=== PATIENT | female | born 1995 | race American Indian/Alaskan Native ===

== ENCOUNTER 2016-08-02 15:28 | Emergency (ER) | payer MEDICAID, OTHER | END 2016-08-02 15:29 | disposition left against medical advice (07) | LOC: ED 15:28 | DX: Z02.89 Encounter for other administrative examinations (principal); R25.2 Cramp and spasm ==

== ENCOUNTER 2016-08-02 15:33 | Emergency (ER) | payer MEDICAID, OTHER ==
[2016-08-02] MEDS ORDERED: Sodium Chloride 0.9% 1,000 ML IV STA (15:58)
--- NOTE | 2016-08-02 16:02 | ED PDOC ---
Arrival/HPI - General Chief Complaint: Female Genitourinary Time Seen by Provider: 08/02/16 15:51 Historian: Patient - History of Present Illness Narrative History of Present Illness (Text): 08/02/16 15:59 Patient reports onset of her menses yesterday, complains of crampy lower abdominal pain, associated with nausea, vomiting 3x today, diarrhea yesterday but none today, as well as heavy vaginal bleeding, reports using 4-5 pads/day. Otherwise: (-) urinary symptoms, (-) relief from midol, (-) fever, (-) other complaints. PMD none TELEPHONIC NURSE none Past Medical History - Provider Review Nursing Documentation Reviewed: Yes - Infectious Disease Hx of Infectious Diseases: None - Cardiac Hx Cardiac Disorders: No - Pulmonary Hx Asthma: Yes - Neurological Hx Migraine: Yes - HEENT Hx HEENT Disorder: No - Renal Hx Renal Disorder: No - Endocrine/Metabolic Hx Endocrine Disorders: No - Hematological/Oncological Hx Blood Disorders: No - Integumentary Hx Dermatological Disorder: No - Musculoskeletal/Rheumatological Hx Musculoskeletal Disorders: No - Gastrointestinal Hx Gastrointestinal Disorders: No - Genitourinary/Gynecological Hx Genitourinary Disorders: No - Psychiatric Hx Psychophysiologic Disorder: No Hx Substance Use: No - Anesthesia Hx Anesthesia: No Hx Anesthesia Reactions: No Hx Malignant Hyperthermia: No Family/Social History - Physician Review Nursing Documentation Reviewed: Yes Family/Social History: No Known Family HX Smoking Status: Former Smoker Hx Alcohol Use: Yes Frequency of alcohol use: Socially Hx Substance Use: No Allergies/Home Meds Allergies/Adverse Reactions: Allergies No Known Allergies Allergy (Verified 08/02/16 15:43) Review of Systems - Review of Systems Constitutional: Normal. absent: Fatigue, Weight Change Respiratory: Normal. absent: SOB, Cough Cardiovascular: Normal. absent: Chest Pain, Palpitations Gastrointestinal: Normal, Diarrhea, Nausea, Vomiting. absent: Stool Changes, Constipation Genitourinary Female: Normal. absent: Dysuria, Frequency, Hematuria Skin: Normal. absent: Rash, Skin Lesions Physical Exam - Physical Exam Narrative Physical Exam (Text): 08/02/16 16:01 GENERAL APPEARANCE: Patient is awake, alert, oriented x 3, in no acute distress. Patient is sitting comfortably in the chair talking on her cell phone. SKIN: Warm, dry; (-) cyanosis. EYES: (-) conjunctival pallor, (-) scleral icterus. ENMT: Mucous membranes moist. NECK: (-) tenderness, (-) stiffness, (-) lymphadenopathy. CHEST AND RESPIRATORY: (-) rales, (-) rhonchi, (-) wheezes; breath sounds equal bilaterally. HEART AND CARDIOVASCULAR: (-) irregularity; (-) murmur, (-) gallop. ABDOMEN AND GI: (-) distention. Bowel sounds active; (-) tenderness, (-) guarding, (-) rebound, (-) palpable masses, (-) CVA tenderness. EXTREMITIES: (-) deformity, (-) edema, (+) distal pulses. NEURO AND PSYCH: Mental status as above; (-) focal findings. Vital Signs Temp Pulse Resp BP Pulse Ox 08/02/16 16:20 98.0 F 63 18 120/69 98 08/02/16 15:39 98.1 F 63 18 120/69 99 Medical Decision Making ED Course and Treatment: 08/02/16 16:00 21 yo F presents with dysmenorrhea with N/V/D. Plan: -- Labs -- IV fluids -- Zofran / Toradol -- Reassess and disposition 08/02/16 17:18 [facility] [place] (-). Labs wnl. Lab results discussed with the patient in great detail. On re-evaluation, patient is resting in bed comfortably in no acute distress, talking on her cellphone. On exam, abdomen remains soft with no tenderness, no rebound, no guarding. Based on history, exam and diagnostic results plan will be for outpatient follow -up. Prescription provided. Patient states she fully agrees with and understands discharge instructions. States that she agrees with the plan and disposition. Verbalized and repeated discharge instructions and plan. I have given the patient opportunity to ask any additional questions. Follow up with referral physician in 1-2 days without fail. Advised to take medication as prescribed. Return to the emergency room at any time for any new or worsening symptoms. - Lab Interpretations Lab Results: 08/02/16 16:15 08/02/16 16:15 Lab Results 08/02/16 16:15: WBC 7.5, RBC 3.92, Hgb 12.7, Hct 36.1, MCV 92.1, MCH 32.4, MCHC 35.2, RDW 12.3, Plt Count 234, MPV 9.3, Gran % 58.4, Lymph % (Auto) 34.8, [place] % (Auto) 5.2, Eos % (Auto) 1.5, Baso % (Auto) 0.1, Gran # 4.35, Lymph # 2.6, [place] # 0.4, Eos # 0.1, Baso # 0.01, Sodium 139, Potassium 4.0, Chloride 104, Carbon Dioxide 25, Anion Gap 14, BUN 12, Creatinine 0.7, Est GFR ( Amer) > 60, Est GFR (Non-Af Amer) > 60, Random Glucose 92, Calcium 9.1, Total Bilirubin 0.5, AST 18, ALT 8, Alkaline Phosphatase 65, Total Protein 7.2, Albumin 4.0, Globulin 3.3, Albumin/Globulin Ratio 1.2 - Medication Orders Current Medication Orders: Discontinued Medications Sodium Chloride (Sodium Chloride 0.9%) 1,000 mls @ 1,000 mls/hr IV .Q1H STA Stop: 08/02/16 16:57 Last Admin: 08/02/16 16:26 Dose: 1,000 MLS/HR eMAR Start Stop Document 08/02/16 16:26 SE (Rec: 08/02/16 16:26 [id number] Intravenous Solution Start Date 08/02/16 Start Time 16:26 Ketorolac Tromethamine (Toradol) 30 mg IVP STAT STA Stop: 08/02/16 15:59 Last Admin: 08/02/16 16:26 Dose: 30 MG IVP Administration Document 08/02/16 16:26 SE (Rec: 08/02/16 16:26 [id number] Charges for Administration # of IVP Administrations 1 Ondansetron HCl (Zofran Inj) 4 mg IVP STAT STA Stop: 08/02/16 15:58 Last Admin: 08/02/16 16:26 Dose: 4 MG IVP Administration Document 08/02/16 16:26 SE (Rec: 08/02/16 16:26 [id number] Charges for Administration # of IVP Administrations 1 - 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 Disposition/Present on Arrival - Present on Arrival Any Indicators Present on Arrival: No History of DVT/PE: No History of Uncontrolled Diabetes: No Urinary Catheter: No History of Decub. Ulcer: No History Surgical Site Infection Following: None - Disposition Have Diagnosis and Disposition been Completed?: Yes Diagnosis: Dysmenorrhea Disposition: HOME/ ROUTINE Disposition Time: 17:21 Patient Plan: Discharge Condition: GOOD Discharge Instructions (ExitCare): Dysmenorrhea (ED) Print Language: BELARUSIAN Additional Instructions: Thank you for letting us take care of you today. You were treated for dysmenorrhea. The emergency medical care you received today was directed at your acute symptoms. If you were prescribed any medication, please fill it and take as directed. It may take several days for your symptoms to resolve. Return to the Emergency Department if your symptoms worsen, do not improve, or if you have any other problems. Please contact referral physician provided in 2 days for re-evaluation and follow up. Bring any paperwork you were given at discharge with you along with any medications you are taking to your follow up visit. Our treatment cannot replace ongoing medical care by a primary care provider (PCP) outside of the emergency department. Thank you for allowing the [facility] team to be part of your care today. Prescriptions: Naproxen 500 mg PO BID #30 tab Ondansetron ODT [Zofran ODT] 4 mg PO DAILY PRN #20 odt PRN Reason: Nausea/Vomiting Referrals: PCPROWENA [Primary Care Provider] - Follow up with primary Pako Gimenez DO [Staff Provider] - Follow up with primary Forms: WORK NOTE
[2016-08-02 16:27] LABS: ADD MANUAL DIFF? NO
[2016-08-02 16:29] VITALS: BP 120/69; PULSE 63; RESP 18; TEMP 98; O2SAT 98
[2016-08-02 16:35] LABS: BASO # 0.01 K/mm3 (0.0-2.0); BASO % 0.1 % (0.0-3.0); EOS # 0.1 (0.0-0.7); EOS % 1.5 % (1.5-5.0); GRAN # 4.35 (1.4-6.5); GRAN % 58.4 % (50.0-68.0); HEMATOCRIT 36.1 % (36.0-48.0); LYMPH # 2.6 (1.2-3.4); LYMPH % 34.8 % (22.0-35.0); MEAN CELL VOLUME 92.1 fL (80.0-105.0); MEAN CORPUSCULAR HEMOGLOBIN 32.4 pg (25.0-35.0); MEAN CORPUSCULAR HGB CONC 35.2 g/dl (31.0-37.0); MEAN PLATELET VOLUME 9.3 fl (7.0-11.0); MONO # 0.4 (0.1-0.6); MONO % 5.2 % (1.0-6.0); PLATELET COUNT 234 10^3/uL (120.0-450.0); RED CELL DISTRIBUTION WIDTH 12.3 % (11.5-14.5); WHITE BLOOD COUNT 7.5 10^3/ul (4.5-11.0)
[2016-08-02 16:39] LABS: ALB/GLOB RATIO 1.2 (1.1-1.8); ALKALINE PHOSPHATASE 65 U/L (38-133); ALT/SGPT 8 U/L (7-56); AST/SGOT 18 U/L (15-39); BILIRUBIN,TOTAL 0.5 mg/dL (0.2-1.3); BLOOD UREA NITROGEN 12 mg/dL (7-21); CALCIUM 9.1 mg/dL (8.4-10.5); CARBON DIOXIDE 25 mmol/L (21-33); CHLORIDE 104 mmol/L (98-107); GFR AFRICAN-AMERICAN > 60; GLUCOSE,RANDOM 92 mg/dL (70-110); SODIUM 139 mmol/L (132-148); TOTAL PROTEIN 7.2 g/dL (5.8-8.3)
== END 2016-08-02 17:34 | disposition home or self-care (01) ==
LOC: ED 15:33
DX: N94.6 Dysmenorrhea, unspecified (principal)
CPT/HCPCS: 80053; 85025; 96374; 96375; 99284; J1885; J2405; J7040

== ENCOUNTER 2016-09-19 00:41 | Emergency (ER) | payer MEDICAID ==
[2016-09-19 00:57] VITALS: BMI 20.4
[2016-09-19 01:01] VITALS: BP 123/79; PULSE 79; RESP 18; TEMP 98.9; O2SAT 96
--- NOTE | 2016-09-19 01:24 | ED PDOC ---
Arrival/HPI - General Chief Complaint: Upper Extremity Problem/Injury Time Seen by Provider: 09/19/16 01:13 Historian: Patient - History of Present Illness Narrative History of Present Illness (Text): 09/19/16 01:19 Marielle Hooper is a 21 year old female, with no significant past medical history, who presents to the emergency department complaining of bilateral shoulder discomfort. 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 Patient denies any back pain, neck pain, headache , dizziness, weakness/numbness/tingling in the extremities, chest pain, shortness of breath, or any other complaints. Time/Duration: Other (tonight) Symptom Onset: Gradual Symptom Course: Unchanged Quality: Other (Muscle spasms) Context: Work Past Medical History - Provider Review Nursing Documentation Reviewed: Yes - Infectious Disease Hx of Infectious Diseases: None - Cardiac Hx Cardiac Disorders: No - Pulmonary Hx Asthma: Yes - Neurological Hx Migraine: Yes - HEENT Hx HEENT Disorder: No - Renal Hx Renal Disorder: No - Endocrine/Metabolic Hx Endocrine Disorders: No - Hematological/Oncological Hx Blood Disorders: No - Integumentary Hx Dermatological Disorder: No - Musculoskeletal/Rheumatological Hx Musculoskeletal Disorders: No - Gastrointestinal Hx Gastrointestinal Disorders: No - Genitourinary/Gynecological Hx Genitourinary Disorders: No - Psychiatric Hx Psychophysiologic Disorder: No Hx Substance Use: No - Anesthesia Hx Anesthesia: No Hx Anesthesia Reactions: No Hx Malignant Hyperthermia: No Family/Social History - Physician Review Nursing Documentation Reviewed: Yes Family/Social History: No Known Family HX Smoking Status: Never Smoked Hx Alcohol Use: Yes Frequency of alcohol use: Socially Hx Substance Use: No Allergies/Home Meds Allergies/Adverse Reactions: Allergies lactose Allergy (Verified 09/19/16 00:57) ITCHING Review of Systems - Physician Review All systems were reviewed & negative as marked: Yes - Review of Systems Constitutional: Normal. absent: Fevers Eyes: Normal ENT: Normal Respiratory: Normal. absent: SOB, Cough Cardiovascular: Normal. absent: Chest Pain Gastrointestinal: Normal. absent: Abdominal Pain, Diarrhea, Nausea, Vomiting Genitourinary Female: Normal. absent: Dysuria, Frequency, Hematuria, Urine Output Changes Musculoskeletal: Myalgias (+bilateral shoulder pain). absent: Back Pain, Neck Pain Skin: Normal Neurological: Normal Endocrine: Normal Hemo/Lymphatic: Normal Psychiatric: Normal Physical Exam Vital Signs Reviewed: Yes Vital Signs Temp Pulse Resp BP Pulse Ox 09/19/16 01:00 98.9 F 79 18 123/79 96 Temperature: Afebrile Blood Pressure: Normal Pulse: Regular Respiratory Rate: Normal Appearance: Positive for: Well-Appearing, Non-Toxic, Comfortable Pain Distress: None Mental Status: Positive for: Alert and Oriented X 3 - Systems Exam Head: Present: Atraumatic, Normocephalic Pupils: Present: PERRL Extroacular Muscles: Present: EOMI Conjunctiva: Present: Normal Mouth: Present: Moist Mucous Membranes Neck: Present: Normal Range of Motion. No: Meningeal Signs, MIDLINE TENDERNESS , Paraspinal Tenderness Respiratory/Chest: Present: Clear to Auscultation, Good Air Exchange. No: Respiratory Distress, Accessory Muscle Use Cardiovascular: Present: Regular Rate and Rhythm, Normal S1, S2. No: Murmurs Abdomen: Present: Normal Bowel Sounds. No: Tenderness, Distention, Peritoneal Signs Back: Present: Normal Inspection. No: CVA Tenderness, Midline Tenderness, Paraspinal Tenderness Upper Extremity: Present: Normal Inspection. No: Cyanosis, Edema Lower Extremity: Present: Normal Inspection, NORMAL PULSES, Normal ROM, Neurovascularly Intact, Capillary Refill < 2 s. No: Edema, Cyanosis, Erythema, Deformity, Temperature Abnormalties Neurological: Present: GCS=15, CN II-XII Intact, Speech Normal, Motor Func Grossly Intact, Normal Sensory Function, Normal Cerebellar Funct Skin: Present: Warm, Dry, Normal Color. No: Rashes Psychiatric: Present: Alert, Oriented x 3, Normal Insight, Normal Concentration Medical Decision Making ED Course and Treatment: 09/19/16 01:19 Impression: 21 y/o female complaining of bilateral shoulder discomfort. Differential Diagnosis included but are not limited to: muscle spasms vs. strain Plan: -- Flexeril -- Motrin -- Reassess and disposition Progress Notes: - Medication Orders Current Medication Orders: Cyclobenzaprine HCl (Flexeril) 10 mg PO ONCE ONE Stop: 09/19/16 01:21 Ibuprofen (Motrin Tab) 400 mg PO STAT STA Stop: 09/19/16 01:21 - Scribe Statement The provider has reviewed the documentation as recorded by the Elijah Ventura Provider Attestation: All medical record entries made by the Scribnimisha were at my direction and personally dictated by me. I have reviewed the chart and agree that the record accurately reflects my personal performance of the history, physical exam, medical decision making, and the department course for this patient. I have also personally directed, reviewed, and agree with the discharge instructions and disposition. Disposition/Present on Arrival - Present on Arrival Any Indicators Present on Arrival: No History of DVT/PE: No History of Uncontrolled Diabetes: No Urinary Catheter: No History of Decub. Ulcer: No History Surgical Site Infection Following: None - Disposition Have Diagnosis and Disposition been Completed?: Yes Diagnosis: Muscle strain, Muscle spasm Disposition: HOME/ ROUTINE Disposition Time: 01:29 Patient Plan: Discharge Condition: STABLE Discharge Instructions (ExitCare): Muscle Strain (ED), Muscle Spasm (ED) Additional Instructions: Rest/avoid strenuous physical activity/take meds as prescribed/follow up with your doctor this week Prescriptions: Ibuprofen [Motrin] 400 mg PO Q6 PRN #14 tab PRN Reason: Pain, Moderate (4-7)
== END 2016-09-19 01:52 | disposition home or self-care (01) ==
LOC: ED 00:41
DX: S46.912A Strain of unspecified muscle, fascia and tendon at shoulder and upper arm level, left arm, initial encounter (principal); S46.911A Strain of unspecified muscle, fascia and tendon at shoulder and upper arm level, right arm, initial encounter; X50.0XXA Overexertion from strenuous movement or load, initial encounter; Y93.89 Activity, other specified; Y92.69 Other specified industrial and construction area as the place of occurrence of the external cause; Y99.8 Other external cause status

== ENCOUNTER 2016-10-02 20:52 | Emergency (ER) | payer MEDICAID ==
[2016-10-02 20:52] VITALS: BMI 20.4
[2016-10-02 21:02] VITALS: BP 123/83; PULSE 87; RESP 16; TEMP 99; O2SAT 97
[2016-10-02] MEDS ORDERED: Oxycodone/Acetaminophen 5/325 mg Tab PO STA (21:29)
[2016-10-02] MEDS ORDERED: Amoxicillin-Clav 875-125 mg Tab PO STA (21:35)
--- NOTE | 2016-10-02 21:39 | ED PDOC ---
Arrival/HPI - General Chief Complaint: ENT Problem Time Seen by Provider: 10/02/16 21:04 Historian: Patient - History of Present Illness Narrative History of Present Illness (Text): 10/02/16 21:36 21 y/o female, no significant pmh, nkda, c/o nasal congestion and headache x 2 days with no fall or trauma. Aching pain, pressure sensation, no fever or chills, no headache or night sweat, no rash, no numbness or tingling, no other medical or psychological complaints. Past Medical History - Provider Review Nursing Documentation Reviewed: Yes - Infectious Disease Hx of Infectious Diseases: None - Cardiac Hx Cardiac Disorders: No - Pulmonary Hx Asthma: Yes - Neurological Hx Migraine: Yes - HEENT Hx HEENT Disorder: No - Renal Hx Renal Disorder: No - Endocrine/Metabolic Hx Endocrine Disorders: No - Hematological/Oncological Hx Blood Disorders: No - Integumentary Hx Dermatological Disorder: No - Musculoskeletal/Rheumatological Hx Musculoskeletal Disorders: No - Gastrointestinal Hx Gastrointestinal Disorders: No - Genitourinary/Gynecological Hx Genitourinary Disorders: No - Psychiatric Hx Psychophysiologic Disorder: No Hx Substance Use: No - Anesthesia Hx Anesthesia: No Hx Anesthesia Reactions: No Hx Malignant Hyperthermia: No Family/Social History - Physician Review Nursing Documentation Reviewed: Yes Family/Social History: Unknown Family HX Smoking Status: Never Smoked Hx Alcohol Use: Yes Frequency of alcohol use: Socially Hx Substance Use: No Allergies/Home Meds Allergies/Adverse Reactions: Allergies lactose Allergy (Verified 09/19/16 00:57) ITCHING Review of Systems - Review of Systems Constitutional: absent: Fatigue, Fevers Eyes: absent: Vision Changes ENT: Rhinorrhea, Sinus Congestion. absent: Hearing Changes Respiratory: absent: SOB, Cough, Sputum Cardiovascular: absent: Chest Pain Gastrointestinal: absent: Abdominal Pain, Nausea, Vomiting Neurological: Headache. absent: Dizziness, Focal Weakness, Speech Changes, Facial Droop Physical Exam Vital Signs Reviewed: Yes Vital Signs Temp Pulse Resp BP Pulse Ox 10/02/16 21:01 99.0 F 87 16 123/83 97 Temperature: Afebrile Blood Pressure: Normal Pulse: Regular Respiratory Rate: Normal Appearance: Positive for: Well-Appearing, Non-Toxic, Comfortable Pain Distress: Moderate Mental Status: Positive for: Alert and Oriented X 3 - Systems Exam Head: Present: Atraumatic, Normocephalic, Other (+ttp on the lt. maxillar sinus region with no facial swelling. ) Pupils: Present: PERRL Extroacular Muscles: Present: EOMI Conjunctiva: Present: Normal Mouth: Present: Moist Mucous Membranes Neck: Present: Normal Range of Motion Respiratory/Chest: Present: Clear to Auscultation, Good Air Exchange. No: Respiratory Distress, Accessory Muscle Use Cardiovascular: Present: Regular Rate and Rhythm, Normal S1, S2. No: Murmurs Abdomen: Present: Normal Bowel Sounds. No: Tenderness, Distention, Peritoneal Signs Back: Present: Normal Inspection Upper Extremity: Present: Normal Inspection. No: Cyanosis, Edema Lower Extremity: Present: Normal Inspection. No: Edema Neurological: Present: GCS=15, Speech Normal, Motor Func Grossly Intact, Gait Normal, Memory Normal Skin: Present: Warm, Dry, Normal Color. No: Rashes Lymphatic: No: Cervical Adenopathy Psychiatric: Present: Alert, Oriented x 3, Normal Insight, Normal Concentration Medical Decision Making ED Course and Treatment: 10/02/16 21:38 -toradol IM and augmentin -Pt. request to be discharged home -Discharge home with augmentin, flonase, claritin d24, motrin, stay hydrated, bed rest, follow up with your own pmd and ENT within 2 days, return to the ER for any new or worsening signs or symptoms. 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 Disposition/Present on Arrival - Present on Arrival Any Indicators Present on Arrival: No History of DVT/PE: No History of Uncontrolled Diabetes: No Urinary Catheter: No History of Decub. Ulcer: No History Surgical Site Infection Following: None - Disposition Have Diagnosis and Disposition been Completed?: Yes Diagnosis: Sinusitis Disposition: HOME/ ROUTINE Disposition Time: 21:39 Patient Plan: Discharge Condition: GOOD Additional Instructions: Discharge home with augmentin, flonase, claritin d24, motrin, stay hydrated, bed rest, follow up with your own pmd and ENT within 2 days, return to the ER for any new or worsening signs or symptoms. Prescriptions: Amoxicillin/Clavulanate [Augmentin 875 MG-125 MG] 1 tab PO BID #14 tab Fluticasone Nasal [Flonase] 1 spr NS DAILY #1 bot Ibuprofen [Motrin] 600 mg PO QID PRN #24 tab PRN Reason: Other Loratadine/Pseudoephedrine [Claritin-D 24 Hour Tablet] 1 each PO DAILY #7 tab.er.24h Referrals: Ronda Floyd, [Primary Care Provider] - Follow up with primary Jose Carlos Moran DO [Staff Provider] - Follow up with primary [facility] [place] - Follow up with primary Forms: WORK NOTE
== END 2016-10-02 23:09 | disposition home or self-care (01) ==
LOC: ED 20:52
DX: J32.9 Chronic sinusitis, unspecified (principal)
CPT/HCPCS: 96372; 99283; J1885

== ENCOUNTER 2016-10-25 20:27 | Emergency (ER) | payer MEDICAID ==
[2016-10-25 20:27] VITALS: BMI 20.4
[2016-10-25 20:39] VITALS: BP 121/80; PULSE 66; RESP 19; TEMP 98.1; O2SAT 99
--- NOTE | 2016-10-25 20:48 | ED PDOC ---
Arrival/HPI - General Historian: Patient <Elizabeth Chacon A - Last Filed: 10/25/16 20:45> <Александр Bravo - Last Filed: 10/26/16 03:56> - General Chief Complaint: ENT Problem Time Seen by Provider: 10/25/16 20:41 - History of Present Illness Narrative History of Present Illness (Text): 10/25/16 20:45 21yo female present in ED with 3days history of sore throat and cough. + Odynophagia. denies dysphagia, fever, chills, SOB, hoarseness, drooling, any other complaint. (Elizabeth Chacon A) Past Medical History - Provider Review Nursing Documentation Reviewed: Yes - Infectious Disease Hx of Infectious Diseases: None - Cardiac Hx Cardiac Disorders: No - Pulmonary Hx Asthma: Yes - Neurological Hx Migraine: Yes - HEENT Hx HEENT Disorder: No - Renal Hx Renal Disorder: No - Endocrine/Metabolic Hx Endocrine Disorders: No - Hematological/Oncological Hx Blood Disorders: No - Integumentary Hx Dermatological Disorder: No - Musculoskeletal/Rheumatological Hx Musculoskeletal Disorders: No - Gastrointestinal Hx Gastrointestinal Disorders: No - Genitourinary/Gynecological Hx Genitourinary Disorders: No - Psychiatric Hx Psychophysiologic Disorder: No Hx Substance Use: No - Anesthesia Hx Anesthesia: No Hx Anesthesia Reactions: No Hx Malignant Hyperthermia: No <Elizabeth Chacon A - Last Filed: 10/25/16 20:45> Family/Social History - Physician Review Nursing Documentation Reviewed: Yes Family/Social History: Unknown Family HX Smoking Status: Never Smoked Hx Alcohol Use: Yes Frequency of alcohol use: Socially Hx Substance Use: No <Elizabeth Chacon A - Last Filed: 10/25/16 20:45> Allergies/Home Meds <Elizabeth Chacon A - Last Filed: 10/25/16 20:45> <Александр Bravo - Last Filed: 10/26/16 03:56> Allergies/Adverse Reactions: Allergies lactose Allergy (Verified 10/25/16 20:36) ITCHING Review of Systems - Physician Review All systems were reviewed & negative as marked: Yes - Review of Systems Constitutional: Normal Eyes: Normal ENT: Sore Throat Respiratory: Cough. absent: SOB, Sputum, Wheezing Cardiovascular: Normal Gastrointestinal: Normal Genitourinary Female: Normal Musculoskeletal: Normal Skin: Normal Neurological: Normal Endocrine: Normal Hemo/Lymphatic: Normal Psychiatric: Normal <Elizabeth Chacon A - Last Filed: 10/25/16 20:45> Physical Exam Vital Signs Reviewed: Yes Temperature: Afebrile Blood Pressure: Normal Pulse: Regular Respiratory Rate: Normal Appearance: Positive for: Well-Appearing, Non-Toxic, Comfortable Pain Distress: None Mental Status: Positive for: Alert and Oriented X 3 - Systems Exam Head: Present: Atraumatic, Normocephalic Pupils: Present: PERRL Extroacular Muscles: Present: EOMI Conjunctiva: Present: Normal Mouth: Present: Moist Mucous Membranes Pharnyx: Present: ERYTHEMA, TONSILS ENLARGED. No: EXUDATE, Peritonsilar Swelling, Uvular Deviation, Muffled/Hoarse Voice, Strider, Soft Palate/Uvular Edema Neck: Present: Normal Range of Motion Respiratory/Chest: Present: Clear to Auscultation, Good Air Exchange. No: Respiratory Distress, Accessory Muscle Use, Wheezes, Decreased Breath Sounds, Rales, Retracting, Rhonchi Cardiovascular: Present: Regular Rate and Rhythm, Normal S1, S2. No: Murmurs Abdomen: Present: Normal Bowel Sounds. No: Tenderness, Distention, Peritoneal Signs Back: Present: Normal Inspection Upper Extremity: Present: Normal Inspection. No: Cyanosis, Edema Lower Extremity: Present: Normal Inspection. No: Edema Neurological: Present: GCS=15, CN II-XII Intact, Speech Normal Skin: Present: Warm, Dry, Normal Color. 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 <Александр Bravo - Last Filed: 10/26/16 03:56> Disposition/Present on Arrival - Present on Arrival Any Indicators Present on Arrival: No History of DVT/PE: No History of Uncontrolled Diabetes: No Urinary Catheter: No History of Decub. Ulcer: No History Surgical Site Infection Following: None - Disposition Have Diagnosis and Disposition been Completed?: Yes Disposition Time: 20:55 Patient Plan: Discharge <Elizabeth Chacon A - Last Filed: 10/25/16 20:45> <Александр Bravo - Last Filed: 10/26/16 03:56> - Disposition Diagnosis: Acute pharyngitis, Cough Disposition: HOME/ ROUTINE Condition: STABLE Discharge Instructions (ExitCare): Tonsillitis (ED), Acute Cough (ED) Additional Instructions: Follow up with your Doctor Return to ED for any new or worsening symptoms Prescriptions: Amoxicillin [Amoxil 500 mg Cap] 500 mg PO BID #14 cap Referrals: [facility] [place] [Outside] - Follow up with primary Forms: WORK NOTE
== END 2016-10-25 21:12 | disposition home or self-care (01) ==
LOC: ED 20:27
DX: J02.9 Acute pharyngitis, unspecified (principal); R05 Cough
CPT/HCPCS: 96372; 99283; J1100

== ENCOUNTER 2016-11-06 17:36 | Emergency (ER) | payer MEDICAID ==
[2016-11-06 17:57] VITALS: BMI 20.5
--- NOTE | 2016-11-06 18:38 | ED PDOC ---
Arrival/HPI - General Chief Complaint: ENT Problem Time Seen by Provider: 11/06/16 17:39 Historian: Patient - History of Present Illness Narrative History of Present Illness (Text): 11/06/16 18:37 21-year-old female presents today with a popping sensation in the right ear since yesterday. Patient denies clogged sensation. Denies fevers or chills. Denies sore throat. Patient complaining of nasal congestion and postnasal drip. Denies chest pain or shortness of breath. Denies fevers or chills. Patient states she is currently taking amoxicillin for recent throat infection and still has a few more days of the antibiotic. She denies dizziness or weakness. No other complaints Time/Duration: Other (2 days) Symptom Onset: Sudden Symptom Course: Intermittent Quality: Other (no pain) Past Medical History - Provider Review Nursing Documentation Reviewed: Yes - Travel History Have you recently traveled outside [place] w/in the past 3 mons?: No - Infectious Disease Hx of Infectious Diseases: None - Tetanus Immunization Tetanus Immunization: Unknown - Cardiac Hx Cardiac Disorders: No - Pulmonary Hx Asthma: Yes - Neurological Hx Migraine: Yes - HEENT Hx HEENT Disorder: No - Renal Hx Renal Disorder: No - Endocrine/Metabolic Hx Endocrine Disorders: No - Hematological/Oncological Hx Blood Disorders: No - Integumentary Hx Dermatological Disorder: No - Musculoskeletal/Rheumatological Hx Musculoskeletal Disorders: No - Gastrointestinal Hx Gastrointestinal Disorders: No - Genitourinary/Gynecological Hx Genitourinary Disorders: No - Psychiatric Hx Psychophysiologic Disorder: No Hx Substance Use: No - Anesthesia Hx Anesthesia: No Hx Anesthesia Reactions: No Hx Malignant Hyperthermia: No Family/Social History - Physician Review Nursing Documentation Reviewed: Yes Family/Social History: Unknown Family HX Smoking Status: Never Smoked Hx Alcohol Use: Yes Frequency of alcohol use: Socially Hx Substance Use: No Allergies/Home Meds Allergies/Adverse Reactions: Allergies lactose Allergy (Verified 11/06/16 17:57) ITCHING Review of Systems - Review of Systems Constitutional: absent: Fatigue, Fevers ENT: Sinus Congestion, Other (popping sensation in right ear. ). absent: Hearing Changes Respiratory: absent: SOB, Cough Cardiovascular: absent: Chest Pain, Palpitations Gastrointestinal: absent: Abdominal Pain, Nausea, Vomiting Genitourinary Female: absent: Dysuria Musculoskeletal: absent: Arthralgias Skin: absent: Rash Neurological: absent: Headache, Dizziness Physical Exam Vital Signs Reviewed: Yes Vital Signs Temp Pulse Resp BP Pulse Ox 11/06/16 18:00 98.7 F 87 14 106/74 98 Temperature: Afebrile Blood Pressure: Normal Pulse: Regular Respiratory Rate: Normal Appearance: Positive for: Well-Appearing, Non-Toxic, Comfortable Pain Distress: None Mental Status: Positive for: Alert and Oriented X 3 - Systems Exam Head: Present: Atraumatic Conjunctiva: Present: Normal Ears: Present: Other (right TM wnl. left TM obstructed by cerumen. no mastoid tenderness). No: Erythema, TM Perf Mouth: Present: Moist Mucous Membranes Pharnyx: Present: Normal, Other (+ post nasal drip noted. ). No: ERYTHEMA, EXUDATE Nose (External): Present: Atraumatic Neck: Present: Normal Range of Motion, Trachea Midline. No: Lymphadenopathy Respiratory/Chest: Present: Clear to Auscultation, Good Air Exchange. No: Respiratory Distress, Accessory Muscle Use Cardiovascular: Present: Regular Rate and Rhythm, Normal S1, S2. No: Murmurs Skin: Present: Warm, Dry Psychiatric: Present: Alert, Oriented x 3 Medical Decision Making ED Course and Treatment: 11/06/16 18:36 Patient is nontoxic well-appearing no distress with stable vital signs complaining of a popping sensation in the right ear Patient currently on amoxicillin. She was advised to continue the antibiotic until completion. Patient with nasal congestion will add Flonase. Patient was advised to follow-up with the ENT specialist on a primary care physician within the next 2 days. Advised to return if symptoms worsen persist or if new concerning symptoms develop Patient verbalizes understanding of discharge instructions and need for immediate followup. all aspects of this case were discussed the attending of record. Impression: Earache Continue antibiotics as prescribed Motrin every 6 hours as needed for pain Flonase 2 sprays each nostril once daily Follow-up with ENT specialist within the next 2 days Follow-up with primary care physician within the next 2 days Return if symptoms worsen persist or if new concerning symptoms develop Disposition/Present on Arrival - Present on Arrival Any Indicators Present on Arrival: No History of DVT/PE: No History of Uncontrolled Diabetes: No Urinary Catheter: No History of Decub. Ulcer: No History Surgical Site Infection Following: None - Disposition Have Diagnosis and Disposition been Completed?: Yes Diagnosis: Earache Disposition: HOME/ ROUTINE Disposition Time: 18:30 Patient Plan: Discharge Condition: GOOD Discharge Instructions (ExitCare): Earache (ED) Additional Instructions: Continue antibiotics as prescribed Motrin every 6 hours as needed for pain Flonase 2 sprays each nostril once daily Follow-up with ENT specialist within the next 2 days Follow-up with primary care physician within the next 2 days Return if symptoms worsen persist or if new concerning symptoms develop Prescriptions: Fluticasone Nasal [Flonase] 2 spr NS DAILY #1 spr Ibuprofen [Motrin Tab] 400 mg PO Q6H PRN #20 tab PRN Reason: Pain, Mild (1-3) Referrals: RunTitle Tierney Floyd, [Primary Care Provider] - Follow up with primary Shoaib Jerry DO [Doctor Osteopathy] - Follow up with primary Shaunna Villasenor MD [Staff Provider] - Follow up with primary Forms: WORK NOTE
[2016-11-06 18:56] VITALS: BP 129/75; PULSE 75; RESP 12; TEMP 98.2; O2SAT 99
== END 2016-11-06 18:57 | disposition home or self-care (01) ==
LOC: ED 17:36
DX: H92.01 Otalgia, right ear (principal)

== ENCOUNTER 2016-12-10 21:18 | Emergency (ER) | payer MEDICAID ==
[2016-12-10 21:18] VITALS: BMI 20.5
[2016-12-10] MEDS ORDERED: TDAP Vaccine 0.5 mL Syr IM ONE (21:33)
[2016-12-10] MEDS ORDERED: Silver Sulfadiazine 1% Cream (25 gm) TP STA (21:33)
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
[2016-12-10 22:59] VITALS: BP 121/77
== END 2016-12-10 21:55 | disposition home or self-care (01) ==
LOC: ED 21:18
DX: T24.202A Burn of second degree of unspecified site of left lower limb, except ankle and foot, initial encounter (principal); X11.8XXA Contact with other hot tap-water, initial encounter; Y93.9 Activity, unspecified; Y92.9 Unspecified place or not applicable; Z23 Encounter for immunization

== ENCOUNTER 2017-06-20 18:41 | Emergency (ER) | payer MEDICAID, OTHER ==
[2017-06-20 18:41] VITALS: BMI 20.5
[2017-06-20 19:21] VITALS: PULSE 72
[2017-06-20 20:38] LABS: PH,URINE 6.5 (4.7-8.0); URINE BILIRUBIN NEGATIVE (NEGATIVE); URINE BLOOD MODERATE (NEGATIVE); URINE GLUCOSE (UA) NEGATIVE (NEGATIVE); URINE LEUKOCYTE ESTERASE TRACE Leu/uL (NEGATIVE); URINE NITRATE NEGATIVE (NEGATIVE); URINE PROTEIN 30 mg/dL (<30 mg/dL)
[2017-06-20 20:50] LABS: URINE APPEARANCE CLEAR (CLEAR); URINE COLOR YELLOW (YELLOW)
[2017-06-20 20:53] LABS: URINE BACTERIA MANY (NEG); URINE RBC 15 - 20 /hpf (0-2)
[2017-06-20 20:54] LABS: URINE AMORPHOUS SEDIMENT FEW
--- NOTE | 2017-06-20 21:46 | ED PDOC ---
Arrival/HPI - General Chief Complaint: Female Genitourinary Time Seen by Provider: 06/20/17 20:12 Historian: Patient - History of Present Illness Narrative History of Present Illness (Text): 06/20/17 21:45 21-year-old female presents today with a 2 day history of dysuria and urinary frequency. Patient also complaining of some intermittent low back pain on the left side. Patient denies vaginal bleeding or vaginal discharge. Denies abdominal pain. No nausea or vomiting. No dizziness or weakness. No medications have been taken at home. Symptom Onset: Gradual Symptom Course: Unchanged Quality: Burning Severity Level: 2 Past Medical History - Provider Review Nursing Documentation Reviewed: Yes - Travel History Have you recently traveled outside [place] w/in the past 3 mons?: No - Infectious Disease Hx of Infectious Diseases: None - Tetanus Immunization Tetanus Immunization: Unknown - Cardiac Hx Cardiac Disorders: No - Pulmonary Hx Asthma: Yes - Neurological Hx Migraine: Yes - HEENT Hx HEENT Disorder: No - Renal Hx Renal Disorder: No - Endocrine/Metabolic Hx Endocrine Disorders: No - Hematological/Oncological Hx Blood Disorders: No - Integumentary Hx Dermatological Disorder: No - Musculoskeletal/Rheumatological Hx Musculoskeletal Disorders: No - Gastrointestinal Hx Gastrointestinal Disorders: No - Genitourinary/Gynecological Hx Genitourinary Disorders: No - Psychiatric Hx Psychophysiologic Disorder: No Hx Substance Use: No - Anesthesia Hx Anesthesia: No Hx Anesthesia Reactions: No Hx Malignant Hyperthermia: No Family/Social History - Physician Review Nursing Documentation Reviewed: Yes Family/Social History: Unknown Family HX Smoking Status: Never Smoked Hx Alcohol Use: Yes Hx Substance Use: No Allergies/Home Meds Allergies/Adverse Reactions: Allergies lactose Allergy (Verified 06/20/17 19:21) ITCHING Review of Systems - Review of Systems Constitutional: absent: Fatigue, Fevers Respiratory: absent: SOB, Cough Cardiovascular: absent: Chest Pain, Palpitations Gastrointestinal: absent: Abdominal Pain, Nausea, Vomiting Genitourinary Female: Dysuria, Frequency. absent: Hematuria, Vaginal Bleeding, Vaginal Discharge Musculoskeletal: Back Pain. absent: Arthralgias Skin: absent: Rash, Pruritis Neurological: absent: Headache, Dizziness Psychiatric: absent: Anxiety, Depression Physical Exam Vital Signs Reviewed: Yes Vital Signs Temp Pulse Resp BP Pulse Ox 06/20/17 19:19 99.2 F 72 18 119/82 99 Temperature: Afebrile Blood Pressure: Normal Pulse: Regular Respiratory Rate: Normal Appearance: Positive for: Well-Appearing, Non-Toxic, Comfortable Pain Distress: None Mental Status: Positive for: Alert and Oriented X 3 - Systems Exam Head: Present: Atraumatic Mouth: Present: Moist Mucous Membranes Neck: Present: Normal Range of Motion Respiratory/Chest: Present: Clear to Auscultation, Good Air Exchange. No: Respiratory Distress, Accessory Muscle Use Cardiovascular: Present: Regular Rate and Rhythm, Normal S1, S2. No: Murmurs Abdomen: Present: Normal Bowel Sounds. No: Tenderness, Distention, Peritoneal Signs, Rebound, Guarding Back: Present: Normal Inspection. No: CVA Tenderness, Midline Tenderness, Paraspinal Tenderness Neurological: Present: GCS=15 Skin: Present: Warm, Dry, Normal Color. No: Rashes Psychiatric: Present: Alert, Oriented x 3 Medical Decision Making ED Course and Treatment: 06/20/17 21:44 Patient is nontoxic well-appearing in no distress with stable vital signs Urinalysis: + leukocytes, + bacteria, + blood Urine culture: pending kelfex given po for UTI. advised follow up with the primary care physician within the next 2 days. advised immediate return if symptoms worsen,persist or if new symptoms develop. Patient verbalizes understanding of discharge instructions and need for immediate followup. all aspects of this case were discussed the attending of record. Impression: Urinary tract infection Motrin every 6 hours as needed for pain Keflex; 1 capsule twice daily x 7 days. Followup with primary care physician within the next 2 days Follow up with the urologist for the next 2 days Return if symptoms worsen persist or if new symptoms develop 06/20/17 22:37 - Lab Interpretations Lab Results: Lab Results 06/20/17 20:13: Urine Color Yellow, Urine Appearance Clear, Urine pH 6.5, Ur Specific [place] 1.025, Urine Protein 30 H, Urine Glucose (UA) Negative, Urine Ketones Negative, Urine Blood Moderate H, Urine Nitrate Negative, Urine Bilirubin Negative, Urine Urobilinogen 1.0 H, Ur Leukocyte Esterase Trace H, Urine RBC 15 - 20, Urine WBC 2 - 5, Ur Epithelial Cells 6 - 8, Amorphous Sediment Few, Urine Bacteria Many, Urine Other Fiber - Medication Orders Current Medication Orders: Discontinued Medications Cephalexin Monohydrate (Keflex) 500 mg PO STAT STA PRN Reason: Protocol Stop: 06/20/17 21:30 Last Admin: 06/20/17 21:35 Dose: 500 mg Disposition/Present on Arrival - Present on Arrival Any Indicators Present on Arrival: No History of DVT/PE: No History of Uncontrolled Diabetes: No Urinary Catheter: No History of Decub. Ulcer: No History Surgical Site Infection Following: None - Disposition Have Diagnosis and Disposition been Completed?: Yes Diagnosis: Urinary tract infection Disposition: HOME/ ROUTINE Disposition Time: 21:43 Patient Plan: Discharge Condition: GOOD Discharge Instructions (ExitCare): Urinary Tract Infection in Women (ED) Additional Instructions: Motrin every 6 hours as needed for pain Keflex; 1 capsule twice daily x 7 days. Followup with primary care physician within the next 2 days Follow up with the urologist for the next 2 days Return if symptoms worsen persist or if new symptoms develop Prescriptions: Cephalexin [Keflex] 500 mg PO BID #14 capsule Ibuprofen [Motrin Tab] 400 mg PO Q6H PRN #20 tab PRN Reason: Pain, Mild (1-3) Referrals: Pako Gimenez DO [Staff Provider] - Follow up with primary Cruz Moralez MD [Staff Provider] - Follow up with primary
[2017-06-20 22:14] VITALS: BP 120/80; RESP 17; TEMP 98.1; O2SAT 98
== END 2017-06-20 22:14 | disposition home or self-care (01) ==
LOC: ED 18:41
DX: N39.0 Urinary tract infection, site not specified (principal)

== ENCOUNTER 2017-10-19 23:00 | Emergency (ER) | payer MEDICAID, OTHER ==
[2017-10-19 23:00] VITALS: BMI 20.5
[2017-10-20 00:05] VITALS: BP 120/86; PULSE 87; RESP 18; TEMP 98.2; O2SAT 99
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
== END 2017-10-20 00:50 | disposition home or self-care (01) ==
LOC: ED 23:00
DX: Z00.00 Encounter for general adult medical examination without abnormal findings (principal)